=== PATIENT | male | born 1980 | race Caucasian/White ===

== ENCOUNTER → 2023-02-28 | Outpatient (CLI) | payer OTHER ==
--- NOTE | 2023-02-28 16:32 | Diagnostic Imaging Report ---
INDICATION: Right shoulder pain. TECHNIQUE: AP and oblique views of the right shoulder were obtained. FINDINGS: No fracture or acute bony abnormality is seen. The joint spaces appear unremarkable. IMPRESSION: Negative right shoulder. Dictated by: Dictated on workstation # [id number]
--- NOTE | 2023-02-28 16:43 | Diagnostic Imaging Report ---
INDICATION: Chronic pain. COMPARISON: None available. TECHNIQUE: Three radiographs of the lumbar spine dated 02/28/2023. FINDINGS: Five lumbar type vertebral bodies are present. Alignment of the lumbar spine is well maintained. Vertebral body heights are well-maintained. Disc space heights are well-maintained. Minimal anterior osteophytes within the mid lumbar spine. The sacroiliac joints are intact. No acute fracture or dislocation. No destructive osseous process. Mild scattered facet joint degenerative changes. IMPRESSION: No acute osseous abnormality with minimal degenerative changes present. Dictated by: Dictated on workstation # [id number]
== END ==
LOC: RAD 10:17
PROVIDERS: ATTEND Family Medicine
DX: Z02.71 Encounter for disability determination (principal); M25.511 Pain in right shoulder; M54.50 Low back pain, unspecified; G89.29 Other chronic pain
CPT/HCPCS: 72100; 73030